=== PATIENT | male | born 1970 | race Caucasian/White ===

== ENCOUNTER 2016-07-31 22:32 | Emergency (ER) | payer BC ==
--- NOTE | 2016-07-31 23:15 | ED ---
General Adult HPI - General Chief complaint: Head Injury Stated complaint: head injury/hockey Time Seen by Provider: 07/31/16 23:02 Source: patient, RN notes reviewed, old records reviewed Mode of arrival: ambulatory Limitations: no limitations - History of Present Illness Initial comments: Chief complaint history of present illness a 46-year-old male who reports several hours ago was playing hockey. 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 He says he saw stars for a few seconds no nausea no vomiting no neck pain. He completed the rest of the hockey game. He is here because she's having headache on the right side of his head. Other concussions over the years - Related Data Previous Rx's Medication Instructions Recorded Acetaminophen-Codeine 300-30mg 1 tab PO Q4H PRN #20 tablet 03/05/16 [Tylenol #3] Ibuprofen [Motrin] 600 mg PO Q8HR PRN #30 tab 03/05/16 Allergies Allergy/AdvReac Type Severity Reaction Status Date / Time No Known Allergies Allergy Verified 03/05/16 09:11 Review of Systems ROS Statement: Those systems with pertinent positive or pertinent negative responses have been documented in the HPI. Review of systems. Mild headache on the right side of the head no stiff neck no nausea no vomiting no chest pain or shortness of breath no GI/ problems no evidence of any neuro deficits complained of. Past medical problems significant for [id number] diabetes mellitus, he's had several concussions. Surgeries include hernia repair and a laceration of the right eye over 25 years ago. Encouraged not to smoke denies any ALLERGIES family history noncontributory ROS Other: All systems not noted in ROS Statement are negative. Past Medical History Past Medical History: Diabetes Mellitus History of Any Multi-Drug Resistant Organisms: MRSA Date of last positivie culture/infection: 1999 MDRO Source:: all over Past Surgical History: Hernia Repair Past Psychological History: No Psychological Hx Reported Smoking Status: Never smoker Past Alcohol Use History: Occasional Past Drug Use History: None Reported General Exam - General Exam Comments Initial Comments: General: The patient is awake and alert, in no distress, and does not appear acutely ill. Complains of discomfort to the right side of his head after getting hit by an elbow during a hockey game. Vital signs show temperature 99.0 pulse 89 respiratory rate 18 pulse ox 99% room air blood pressure 170/90. Eye: Pupils are equal, round and reactive to light, extra-ocular movements are intact ; there is normal conjunctiva bilaterally. No signs of icterus. Ears, nose, mouth and throat: There are moist mucous membranes Neck: The neck is supple, there is no tenderness . Cardiovascular: There is a regular rate and rhythm. No murmur, rub or gallop is appreciated. No chest wall pain Respiratory: Lungs are clear no respiratory distress Gastrointestinal: No abdominal pain no complaint of any nausea since the injury. Back: Full range of motion to his back without complaint of pain. Musculoskeletal: Normal ROM, no tenderness, There is no pedal edema. There is no calf tenderness or swelling. Neurological: No focal or lateralizing findings Skin: Skin is warm and dry and no rashes or lesions are noted. Limitations: no limitations Course Vital Signs 07/31/16 08/01/16 22:43 00:18 Temperature 99.0 F 97.2 F L Pulse Rate 89 82 Respiratory 18 20 Rate Blood Pressure 170/90 178/93 O2 Sat by Pulse 99 97 Oximetry Medical Decision Making - Medical Decision Making CT the brain was done and reviewed by radiologist's his impression is; no acute intracranial hemorrhage, mass effect, or midline shift seen. there is mild chronic sinusitis changes. No significant interval change. As read by Dr. Mancuso Ration will be advised not to put to 10 days follow-up with family physician use Tylenol or ibuprofen for pain. Disposition Clinical Impression: Concussion without loss of consciousness Disposition: HOME SELF-CARE Condition: Good Instructions: Concussion (ED) Additional Instructions: Tylenol or ibuprofen for pain. No sports for 10 days. Follow-up family physician Time of Disposition: 01:00
[2016-08-01 00:19] VITALS: PULSE 82
--- NOTE | 2016-08-01 00:19 | CT ---
EXAMINATION TYPE: CT brain wo con DATE OF EXAM: 07/31/2016 11:38 PM COMPARISON: 09/30/2015 HISTORY: headache CT DLP: 1064.3 mGycm Automated exposure control for dose reduction was used. FINDINGS: There is no acute intracranial hemorrhage, mass effect, or midline shift identified. The ventricles and sulci are within normal limits in size. The globes are intact mild mucosal thickening is present in the maxillary sinuses with mucous retention cysts with chronic sinusitis changes. IMPRESSION: No acute intracranial hemorrhage, mass effect, or midline shift is seen. Mild chronic sinusitis changes. No significant interval change.
[2016-08-01] MEDS ORDERED: IBUPROFEN 800 MG TAB PO STA (01:01)
[2016-08-01 01:08] VITALS: BP 174/98; RESP 12; TEMP 98
== END 2016-08-01 01:20 | disposition home or self-care (01) ==
LOC: EC 22:32
DX: S06.0X0A Concussion without loss of consciousness, initial encounter (principal); J32.9 Chronic sinusitis, unspecified; W03.XXXA Other fall on same level due to collision with another person, initial encounter; E11.9 Type 2 diabetes mellitus without complications; Y93.22 Activity, ice hockey
CPT/HCPCS: 70450; 99283

== ENCOUNTER 2016-10-03 18:24 | Emergency (ER) | payer BC ==
[2016-10-03 18:30] VITALS: BP 137/82; PULSE 84; RESP 16; TEMP 98.1
--- NOTE | 2016-10-03 18:51 | ED ---
General Adult HPI - General Chief complaint: Chest Pain Stated complaint: RIB PAIN, LEFT SIDE Time Seen by Provider: 10/03/16 18:42 Source: patient, RN notes reviewed Mode of arrival: ambulatory Limitations: no limitations - History of Present Illness Initial comments: This is a 46-year-old male who presents with left-sided rib pain after playing hockey last night. Patient states while he was playing hockey collided with another player and landed on his left side. Patient did not hit his head or lose consciousness. Patient denies any neck pain. Patient states it hurts to take a deep breath. Patient states he has had a history of broken ribs and states the pain feels similar to this. Patient has been taking ibuprofen for the pain. Patient's past medical history is significant for diabetes.Patient denies any recent fever, chills, shortness breath, chest pain, abdominal pain, nausea/vomiting/diarrhea, back pain, numbness, tingling, hematuria, headache, or visual changes, or any other complaints. - Related Data Previous Rx's Medication Instructions Recorded Acetaminophen-Codeine 300-30mg 1 tab PO Q4H PRN #20 tablet 03/05/16 [Tylenol #3] Ibuprofen [Motrin] 600 mg PO Q8HR PRN #30 tab 03/05/16 traMADol HCL [Ultram] 50 mg PO Q6HR #12 tab 10/03/16 Allergies Allergy/AdvReac Type Severity Reaction Status Date / Time No Known Allergies Allergy Verified 10/03/16 18:30 Review of Systems ROS Statement: Those systems with pertinent positive or pertinent negative responses have been documented in the HPI. ROS Other: All systems not noted in ROS Statement are negative. Past Medical History Past Medical History: Diabetes Mellitus History of Any Multi-Drug Resistant Organisms: MRSA Date of last positivie culture/infection: 1999 MDRO Source:: all over Past Surgical History: Hernia Repair Additional Past Surgical History / Comment(s): eye abd surg after Past Psychological History: No Psychological Hx Reported Smoking Status: Never smoker Past Alcohol Use History: Occasional Past Drug Use History: None Reported General Exam - General Exam Comments Initial Comments: General: The patient is awake and alert, in no distress, and does not appear acutely ill. Neck: The neck is supple, there is no tenderness or JVD. Cardiovascular: There is a regular rate and rhythm. No murmur, rub or gallop is appreciated. Respiratory: Lungs are clear to auscultation, respirations are non-labored, breath sounds are equal. No wheezes, stridor, rales, or rhonchi. Musculoskeletal: There is mild tenderness to palpation over the lateral aspect of the left side ribs, no erythema, swelling or ecchymosis. Patient has full range of motion, strength 5/5 and Sensation intact. Radial pulses 2+ bilaterally. Neurological: A&O x 3. CN II-XII intact, There are no obvious motor or sensory deficits. Coordination appears grossly intact. Speech is normal. Skin: Skin is warm and dry and no rashes or lesions are noted. Psychiatric: Normal mood and affect. Limitations: no limitations Course Vital Signs 10/03/16 18:26 Temperature 98.1 F Pulse Rate 84 Respiratory 16 Rate Blood Pressure 137/82 O2 Sat by Pulse 97 Oximetry Medical Decision Making - Medical Decision Making This is a 46-year-old male patient of left rib pain. On physical exam lungs are clear to auscultation bilaterally. There is tenderness to palpation over the lateral aspect of the left side ribs, no erythema, swelling or ecchymosis. Patient has full range of motion, strength 5/5 and Sensation intact. Radial pulses 2+ bilaterally. An x-ray of the left ribs and chest x-ray were done and reviewed showin no acute cardiopulmonary process. 2 no acute displaced left- sided rib fractures are evident. Report read by Dr. Ruiz. I discussed rib contusion. I discussed ice packs and heating pads to the area. I discussed Tylenol and Motrin for pain. I discussed tramadol for breakthrough pain. Discussed that he experienced pain from this for up to 6 weeks. Discussed the importance of continued deep breaths to prevent pneumonia or other lung problems, patient states he has been able to take deep breaths with no problem and it only hurts once in awhile. I discussed return parameters. Discussed that patient should follow up with PCP in one to 2 days or return to the [facility] for any worsening symptoms or for any further concerns. Patient was receptive to this plan and patient will be discharged home. Disposition Clinical Impression: Contusion of rib on left side Disposition: HOME SELF-CARE Condition: Good Instructions: Rib Contusion (ED) Additional Instructions: Please use ice or heating pads to the area. Please use Tylenol and Motrin for pain. Please use tramadol for breakthrough pain. Please continue to take deep breaths prevent any pneumonia. Please follow up if ear developing any cough, fever or chills, any shortness of breath or any other concerning symptoms. Please follow-up with her primary care provider next 2 days. Please return to the [facility] for any worsening symptoms or for any further concerns. Prescriptions: traMADol HCL [Ultram] 50 mg PO Q6HR #12 tab Referrals: Ashlee Tran MD [Primary Care Provider] - 1-2 days Time of Disposition: 19:40
--- NOTE | 2016-10-03 19:29 | XR ---
EXAMINATION TYPE: XR ribs LT w pa chest xray DATE OF EXAM: 10/03/2016 7:16 PM CLINICAL HISTORY: Chest and left sided rib pain. TECHNIQUE: Single frontal view of the chest is obtained. A frontal and oblique images of the left margarita ed ribs are obtained. COMPARISON: CXR from 03/05/2016. FINDINGS: There is no focal air space opacity, pleural effusion, or pneumothorax seen. The cardiac silhouette size is within normal limits. The osseous structures are intact. No acute displaced left-sided rib fractures are evident. Overlying soft tissue is unremarkable. IMPRESSION: 1. No acute cardiopulmonary process. 2. No acute displaced left-sided rib fractures are evident.
== END 2016-10-03 19:47 | disposition home or self-care (01) ==
LOC: EC 18:24
DX: S20.212A Contusion of left front wall of thorax, initial encounter (principal); W51.XXXA Accidental striking against or bumped into by another person, initial encounter; Y93.65 Activity, lacrosse and field hockey
CPT/HCPCS: 99284

== ENCOUNTER 2017-07-20 21:38 | Emergency (ER) | payer BC, OTHER ==
[2017-07-20 21:45] VITALS: BP 163/86; PULSE 85; RESP 18; TEMP 100.2
--- NOTE | 2017-07-20 22:08 | XR ---
EXAMINATION TYPE: XR finger RT DATE OF EXAM: 07/20/2017 COMPARISON: NONE HISTORY: Pain TECHNIQUE: 3 views FINDINGS: There is a transverse fracture of the tuft of the distal phalanx of index finger right hand . There is no significant displacement. There is no dislocation. There is soft tissue swelling. IMPRESSION: Tuft fracture distal phalanx of the index finger right hand.
--- NOTE | 2017-07-20 22:11 | ED ---
Wound/Laceration HPI - General Source: patient, RN notes reviewed Mode of arrival: ambulatory Limitations: no limitations <Mikki Armstrong - Last Filed: 07/20/17 21:55> <Uriel Blanco - Last Filed: 07/21/17 19:17> - General Chief Complaint: Wound/Laceration Stated Complaint: fall/finger lac-[facility] Time Seen by Provider: 07/20/17 21:51 - History of Present Illness Initial Comments: This is a 47-year-old male who presents to the emergency department with chief complaint of finger laceration. 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 He states he was pushing a noam up a ramp and and he slipped. The noam came down and crushed his right index finger. Patient states he believes he is up-to -date vaccination. Denies any other injury. Denies fever, chills, chest pain, shortness of breath, abdominal pain, nausea or vomiting, constipation or diarrhea, dysuria or hematuria, numbness or tingling, headache or vision changes. (Mikki Armstrong) - Related Data Previous Rx's Medication Instructions Recorded Acetaminophen-Codeine 300-30mg 1 tab PO Q4H PRN #20 tablet 03/05/16 [Tylenol #3] Ibuprofen [Motrin] 600 mg PO Q8HR PRN #30 tab 03/05/16 traMADol HCL [Ultram] 50 mg PO Q6HR #12 tab 10/03/16 Cephalexin [Keflex] 500 mg PO Q12HR #20 cap 07/20/17 HYDROcodone/APAP 5-325MG [Louise 5] 1 each PO Q6HR PRN #12 tab 07/20/17 Ibuprofen 600 mg PO Q6HR #30 tablet 07/20/17 Allergies Allergy/AdvReac Type Severity Reaction Status Date / Time No Known Allergies Allergy Verified 07/20/17 21:44 Review of Systems ROS Other: All systems not noted in ROS Statement are negative. <Mikki Armstrong - Last Filed: 07/20/17 21:55> ROS Other: All systems not noted in ROS Statement are negative. <Uriel Blanco - Last Filed: 07/21/17 19:17> ROS Statement: Those systems with pertinent positive or pertinent negative responses have been documented in the HPI. Past Medical History Past Medical History: Diabetes Mellitus History of Any Multi-Drug Resistant Organisms: MRSA Date of last positivie culture/infection: 1999 MDRO Source:: all over Past Surgical History: Hernia Repair Additional Past Surgical History / Comment(s): eye abd surg after Past Psychological History: No Psychological Hx Reported Smoking Status: Never smoker Past Alcohol Use History: Occasional Past Drug Use History: None Reported <PattiRichard vacaMikki Hank - Last Filed: 07/20/17 21:55> General Exam Limitations: no limitations <Richard Armstrongistin Hank - Last Filed: 07/20/17 21:55> <Uriel Blanco - Last Filed: 07/21/17 19:17> - General Exam Comments Initial Comments: General: Awake and alert, well-developed; in no apparent distress. HEENT: Head atraumatic, normocephalic. Pupils are equal, round and reactive to light. Extraocular movements intact. Neck: Supple. Normal ROM. Cardiovascular: Regular rate and rhythm. No murmurs, rubs or gallops. Chest symmetrical. Respiratory: Lungs clear to auscultation bilaterally. No wheezes, rales or rhonchi. Normal respiratory effort with no use of accessory muscles. Musculoskeletal: Normal active range of motion of right index finger. Sensation is intact. Radial pulses are 2+ equal and palpable bilaterally. Skin: [place], warm and dry without rashes or lesions. Right index finger nail is avulsed at the base however is able to be pushed back into the matrix. There is a skin tear proximal to the fingernail. A crescent shaped laceration runs from the radial side to the ulnar side of the finger along the base of the nail. Neurological: Alert and oriented x3. CN II-XII grossly intact. Speech is fluent and answers are appropriate. No focal neuro deficits. Psychiatric: Normal mood and affect. No overt signs of depression or anxiety noted. (Mikki Armstrong) Vital Signs 07/20/17 21:41 Temperature 100.2 F H Pulse Rate 85 Respiratory 18 Rate Blood Pressure 163/86 O2 Sat by Pulse 98 Oximetry Procedures - Laceration Laceration #1 Consent Obtained: verbal consent Indication: laceration Site: hand (right distal index finger) Size (cm): 2 Description: flap, irregular (crescent-shaped; involves nail) Depth: simple, single layer Anesthetic Used: lidocaine 1% Anesthesia Technique: nerve block Amount (mls): 2 Pre-repair: wound explored, irrigated extensively, deep structures intact Type of Sutures: nylon Size of Sutures: 5-0 Number of Sutures: 5 Technique: simple, interrupted Patient Tolerated Procedure: well, no complications <Mikki Armstrong - Last Filed: 07/20/17 21:55> <Uriel Blanco - Last Filed: 07/21/17 19:17> - Laceration Laceration #1 Additional Comments: hole made in the base of the nail with an 18 gauge needle to allow for drainage of developing hematoma below fingernail (Mikki Armstrong) Medical Decision Making - Radiology Data Radiology results: report reviewed <Mikki Armstrong - Last Filed: 07/20/17 21:55> <Uriel Blanco - Last Filed: 07/21/17 19:17> - Medical Decision Making This is a 47-year-old male who presents to emergency department for evaluation of a right index finger laceration. Patient sustained a tuft fracture of the distal phalanx. Given IM Ancef while in the emergency department. This case was discussed with attending physician, Dr. Blanco who then also evaluated the patient. Patient has an avulsion of the right index finger nail but it is able to be pushed back in to the matrix. Laceration is crescent-shaped and runs along the base of the finger nail. 3 sutures were placed on the radial aspect of the distal phalanx and two placed on the ulnar aspect. Patient tolerated the procedure well and there were no complications. Patient is neurovascularly intact and in no acute distress. He will be discharged home with prescription for Keflex. He is to follow-up with Dr. Guilherme Coronado. Strongly advised him to call him tomorrow morning and set up an appointment. Patient is in agreement with plan and voices understanding. All questions were answered. (Mikki Armstrong) I saw this patient in conjunction with the physician lead assistant manager. I performed independent history and physical exam. Agree with case management. (Uriel Blanco) - Radiology Data X-ray right index finger impression: Tuft fracture distal phalanx of the index finger right hand. (Mikki Armstrong) Disposition Time of Disposition: 23:09 <Mikki Armstrong - Last Filed: 07/20/17 21:55> <MonetmarissaUriel - Last Filed: 07/21/17 19:17> Clinical Impression: Open fracture of distal phalangeal tuft, Laceration Disposition: HOME SELF-CARE Condition: Good Instructions: Finger Fracture (ED), Finger Laceration (ED) Additional Instructions: Please follow up with Dr. Luis Coronado tomorrow morning. Please keep splint clean, dry and intact. Please take medications as prescribed. Please follow up with primary care provider within 1-2 days. Return to emergency department if symptoms should worsen or any concerns arise. Prescriptions: Cephalexin [Keflex] 500 mg PO Q12HR #20 cap HYDROcodone/APAP 5-325MG [Louise 5] 1 each PO Q6HR PRN #12 tab PRN Reason: Pain Ibuprofen 600 mg PO Q6HR #30 tablet Referrals: Ashlee Tran MD [Primary Care Provider] - 1-2 days Luis Coronado DO [Doctor of Osteopathic Medicine] - 1-2 days
[2017-07-20] MEDS ORDERED: ceFAZolin 1,000 MG VIAL IM STA (22:12)
== END 2017-07-20 23:41 | disposition home or self-care (01) ==
LOC: EC 21:38
DX: S61.210A Laceration without foreign body of right index finger without damage to nail, initial encounter (principal); Z86.14 Personal history of Methicillin resistant Staphylococcus aureus infection; W45.8XXA Other foreign body or object entering through skin, initial encounter; Y92.511 Restaurant or cafe as the place of occurrence of the external cause; Y93.89 Activity, other specified; Y99.0 Civilian activity done for income or pay
CPT/HCPCS: 73140; 99283; 12001; 96372; J0690